=== PATIENT | male | born 1975 | race Two or more races ===

== ENCOUNTER 2019-04-23 08:30 | Emergency (ER) | payer BC, OTHER ==
[~2019-04-23] VITALS: Ht 175.3 cm; Wt 81.6 kg
--- NOTE | 2019-04-23 08:34 | NUR ---
Patient ambulated to bed 8. RN evaluating patient at bedside.
[2019-04-23 08:35] VITALS: BP 128/78
--- NOTE | 2019-04-23 08:38 | NUR ---
Dr. Juárez evaluating patient at bedside.
--- NOTE | 2019-04-23 08:42 | NUR ---
PT BIB SELF WITH C/O FLUID FILLED RASH X 4 DAYS AGO TO LEFT POSTERIOR TORSO RADIATING LEFT RIBS. SLIGHT SORENESS 4/10 AT THIS TIME. STATES TO HAVE ITCHING, DENIES ANY FEVER, N, V. RASH APPERS TO AHVE BLISTERS FILLED WITH FLUID , REDNESS. STATES HAS BURNING SENSATION. NO MEDS TAKEN AT HOME. HX--DENIES RX---NONE
[2019-04-23 08:56] VITALS: BP 128/78
--- NOTE | 2019-04-23 08:56 | NUR ---
Patient discharged with v/s stable. Written and verbal after care instructions given and explained. Patient alert, oriented and verbalized understanding of instructions. Ambulatory with steady gait. All questions addressed prior to discharge. ID band removed. Patient advised to follow up with PMD. Rx of VALACYCLOVIR HCL, CLARITIN given. Patient educated on indication of medication including possible reaction and side effects. Opportunity to ask questions provided and answered.
== END 2019-04-23 08:56 | disposition home or self-care (01) ==
LOC: MED 08:30
DX: B02.9 Zoster without complications (principal); Z98.890 Other specified postprocedural states
CPT/HCPCS: 99283